=== PATIENT | male | born 1950 | race Caucasian/White ===

== ENCOUNTER → 2017-09-26 | Outpatient (CLI) | payer MEDICARE | END | disposition home or self-care (01) | LOC: CPPFTMAIN 13:18 | PROVIDERS: ATTEND Internal Medicine Critical Care Medicine | DX: J44.9 Chronic obstructive pulmonary disease, unspecified (principal) | CPT/HCPCS: 94060; 94726; 94729 ==

== ENCOUNTER 2021-08-20 10:34 | Emergency (ER) | payer MEDICARE ==
[2021-08-20 12:01] LABS: Appearance,Urine Turbid (Clear); Bacteria,Urine Many /hpf; Bilirubin,Urine Negative (Negative); Blood,Urine Large (Negative); Color,Urine Yellow; Glucose,Urine (UA) 4+ (Negative); Leukocyte Esterase,Urine Large (Negative); Mucus,Urine Moderate /hpf; Nitrite,Urine Positive (Negative); PH, Urine 5.5 (5.0-8.0); Protein,Urine 2+ (Negative); RBC,Urine >182 /hpf (0-5); Squamous Epithelial Cell,Urine 1 /hpf (0-4); Urobilinogen,Urine <2.0 mg/dL (<2.0); WBC,Urine >182 /hpf (0-5)
[2021-08-20 12:06] LABS: Ketones,Urine 2+ (Negative)
[2021-08-20] MEDS ORDERED: SODIUM CHLORIDE 0.9% 500 ML 500 ML IV ONE (12:10)
[2021-08-20] MEDS ORDERED: SODIUM CHLORIDE 0.9% 1,000 ML IV ONE (12:10)
[2021-08-20] MEDS ORDERED: ACETAMINOPHEN TAB 325 MG TAB PO STA (12:10)
--- NOTE | 2021-08-20 12:18 | ED ---
Male Urogenital HPI - General Chief complaint: Urogenital Stated complaint: UTI Time Seen by Provider: 08/20/21 11:54 Source: patient, RN notes reviewed Mode of arrival: ambulatory Limitations: no limitations - History of Present Illness Initial comments: This a 71-year-old male presents emergency Department chief complaint of generalized weakness, not feeling well, urinary frequency dysuria. Patient states it pressure yesterday got over to his work today states that he felt so weak that he just went home and slept. Patient states he noticed urinary frequency and dysuria states he had one prior urinary tract infection he does admit that he has some dribbling issues and he wears a pad and noticed some blood a few days ago. Patient has bilateral flank pain. Patient is found to be febrile emergency department. Patient has slight nausea no vomiting no diarrhea constipation no chest pain no shortness of breath no cough or URI symptoms - Related Data Previous Rx's Medication Instructions Recorded Sulfamethox-Tmp 800-160Mg [Bactrim 1 each PO Q12HR #20 tab 08/20/21 Ds] Allergies Allergy/AdvReac Type Severity Reaction Status Date / Time No Known Allergies Allergy Verified 08/20/21 11:20 Review of Systems ROS Statement: Those systems with pertinent positive or pertinent negative responses have been documented in the HPI. ROS Other: All systems not noted in ROS Statement are negative. Past Medical History Past Medical History: CVA/TIA, Diabetes Mellitus, Hyperlipidemia, Hypertension History of Any Multi-Drug Resistant Organisms: None Reported Past Surgical History: Cholecystectomy, Orthopedic Surgery Additional Past Surgical History / Comment(s): carpal tunnel Past Psychological History: No Psychological Hx Reported Smoking Status: Former smoker Past Alcohol Use History: None Reported Past Drug Use History: None Reported General Exam Limitations: no limitations General appearance: alert, in no apparent distress Head exam: Present: atraumatic, normocephalic, normal inspection Eye exam: Present: normal appearance, PERRL, EOMI. Absent: scleral icterus, conjunctival injection, periorbital swelling ENT exam: Present: normal exam, normal oropharynx, mucous membranes moist Neck exam: Present: normal inspection, full ROM. Absent: tenderness, meningismus, lymphadenopathy Respiratory exam: Present: normal lung sounds bilaterally. Absent: respiratory distress, wheezes, rales, rhonchi, stridor Cardiovascular Exam: Present: regular rate, normal rhythm, normal heart sounds. Absent: systolic murmur, diastolic murmur, rubs, gallop, clicks GI/Abdominal exam: Present: soft, normal bowel sounds. Absent: distended, t enderness, guarding, rebound, rigid Back exam: Absent: CVA tenderness (R), CVA tenderness (L) Neurological exam: Present: alert, oriented X3 Course Vital Signs 08/20/21 11:16 Temperature 100.1 F H Pulse Rate 85 Respiratory 18 Rate Blood Pressure 138/84 O2 Sat by Pulse 97 Oximetry Medical Decision Making - Medical Decision Making Patient presented for generalized weakness, urinary symptoms. Patient found to have urinary tract infection. Patient did have hematuria but no evidence of kidney stone. Patient has no retention. Patient feels greatly improved at this time we discharged on oral antibiotics after Rocephin. - Lab Data Result diagrams: 08/20/21 13:13 08/20/21 13:13 Lab Results 08/20/21 08/20/21 08/20/21 Range/Units 11:26 13:13 13:13 WBC 16.1 H (3.8-10.6) k/uL RBC 5.21 (4.30-5.90) m/uL Hgb 16.0 (13.0-17.5) gm/dL Hct 47.1 (39.0-53.0) % MCV 90.3 (80.0-100.0) fL MCH 30.7 (25.0-35.0) pg MCHC 34.0 (31.0-37.0) g/dL RDW 12.5 (11.5-15.5) % Plt Count 173 (150-450) k/uL MPV 7.0 Neutrophils % 87 % Lymphocytes % 7 % Monocytes % 5 % Eosinophils % 0 % Basophils % 0 % Neutrophils # 14.0 H (1.3-7.7) k/uL Lymphocytes # 1.1 (1.0-4.8) k/uL Monocytes # 0.8 (0-1.0) k/uL Eosinophils # 0.1 (0-0.7) k/uL Basophils # 0.0 (0-0.2) k/uL Sodium 135 L (137-145) mmol/L Potassium 3.9 (3.5-5.1) mmol/L Chloride 102 (98-107) mmol/L Carbon Dioxide 24 (22-30) mmol/L Anion Gap 9 mmol/L BUN 11 (9-20) mg/dL Creatinine 0.61 L (0.66-1.25) mg/dL Est GFR (CKD-EPI)AfAm >90 (>60 ml/min/1.73 sqM) Est GFR (CKD-EPI)NonAf >90 (>60 ml/min/1.73 sqM) Glucose 112 H (74-99) mg/dL Plasma Lactic Acid Forrest (0.7-2.0) mmol/L Calcium 9.5 (8.4-10.2) mg/dL Total Bilirubin 1.8 H (0.2-1.3) mg/dL AST 36 (17-59) U/L ALT 28 (4-49) U/L Alkaline Phosphatase 61 (38-126) U/L Total Protein 7.1 (6.3-8.2) g/dL Albumin 4.3 (3.5-5.0) g/dL Urine Color Yellow Urine Appearance Turbid (Clear) Urine pH 5.5 (5.0-8.0) Ur Specific Rockwell 1.020 (1.001-1.035) Urine Protein 2+ H (Negative) Urine Glucose (UA) 4+ H (Negative) Urine Ketones 2+ H (Negative) Urine Blood Large H (Negative) Urine Nitrite Positive (Negative) Urine Bilirubin Negative (Negative) Urine Urobilinogen <2.0 (<2.0) mg/dL Ur Leukocyte Esterase Large H (Negative) Urine RBC >182 H (0-5) /hpf Urine WBC >182 H (0-5) /hpf Urine WBC Clumps Many H (None) /hpf Ur Squamous Epith Cells 1 (0-4) /hpf Urine Bacteria Many H (None) /hpf Urine Mucus Moderate H (None) /hpf 08/20/21 Range/Units 13:13 WBC (3.8-10.6) k/uL RBC (4.30-5.90) m/uL Hgb (13.0-17.5) gm/dL Hct (39.0-53.0) % MCV (80.0-100.0) fL MCH (25.0-35.0) pg MCHC (31.0-37.0) g/dL RDW (11.5-15.5) % Plt Count (150-450) k/uL MPV Neutrophils % % Lymphocytes % % Monocytes % % Eosinophils % % Basophils % % Neutrophils # (1.3-7.7) k/uL Lymphocytes # (1.0-4.8) k/uL Monocytes # (0-1.0) k/uL Eosinophils # (0-0.7) k/uL Basophils # (0-0.2) k/uL Sodium (137-145) mmol/L Potassium (3.5-5.1) mmol/L Chloride (98-107) mmol/L Carbon Dioxide (22-30) mmol/L Anion Gap mmol/L BUN (9-20) mg/dL Creatinine (0.66-1.25) mg/dL Est GFR (CKD-EPI)AfAm (>60 ml/min/1.73 sqM) Est GFR (CKD-EPI)NonAf (>60 ml/min/1.73 sqM) Glucose (74-99) mg/dL Plasma Lactic Acid Forrest 1.0 (0.7-2.0) mmol/L Calcium (8.4-10.2) mg/dL Total Bilirubin (0.2-1.3) mg/dL AST (17-59) U/L ALT (4-49) U/L Alkaline Phosphatase (38-126) U/L Total Protein (6.3-8.2) g/dL Albumin (3.5-5.0) g/dL Urine Color Urine Appearance (Clear) Urine pH (5.0-8.0) Ur Specific Rockwell (1.001-1.035) Urine Protein (Negative) Urine Glucose (UA) (Negative) Urine Ketones (Negative) Urine Blood (Negative) Urine Nitrite (Negative) Urine Bilirubin (Negative) Urine Urobilinogen (<2.0) mg/dL Ur Leukocyte Esterase (Negative) Urine RBC (0-5) /hpf Urine WBC (0-5) /hpf Urine WBC Clumps (None) /hpf Ur Squamous Epith Cells (0-4) /hpf Urine Bacteria (None) /hpf Urine Mucus (None) /hpf Disposition Clinical Impression: UTI (urinary tract infection) Disposition: HOME SELF-CARE Condition: Stable Instructions (If sedation given, give patient instructions): Urinary Tract Infection in Men (ED) Additional Instructions: Please return to the Emergency Department if symptoms worsen or any other concerns. Please follow-up with your primary care physician discuss your enlarged prostate Prescriptions: Sulfamethox-Tmp 800-160Mg [Bactrim Ds] 1 each PO Q12HR #20 tab Is patient prescribed a controlled substance at d/c from ED?: No Referrals: Yanique Lazcano NPC [Primary Care Provider] - 1-2 days Time of Disposition: 14:23
[2021-08-20 13:34] LABS: Basophils % (A) 0 %; Eosinophils # (A) 0.1 k/uL (0-0.7); Eosinophils % (A) 0 %; HCT 47.1 % (39.0-53.0); Lymphocytes # (A) 1.1 k/uL (1.0-4.8); Lymphocytes % (A) 7 %; MCH 30.7 pg (25.0-35.0); MCV 90.3 fL (80.0-100.0); Monocytes # (A) 0.8 k/uL (0-1.0); Monocytes % (A) 5 %; Neutrophils % (A) 87 %; Platelet Count 173 k/uL (150-450); RBC 5.21 m/uL (4.30-5.90); RDW 12.5 % (11.5-15.5); WBC 16.1 k/uL (3.8-10.6)
[2021-08-20 13:47] LABS: ALT 28 U/L (4-49); AST 36 U/L (17-59); African American GFR (CKD) >90 (>60 ml/min/1.73 sqM); Albumin 4.3 g/dL (3.5-5.0); Alkaline Phosphatase 61 U/L (38-126); Anion Gap 9 mmol/L; Blood Urea Nitrogen 11 mg/dL (9-20); Calcium 9.5 mg/dL (8.4-10.2); Carbon Dioxide 24 mmol/L (22-30); Chloride 102 mmol/L (98-107); Glucose 112 mg/dL (74-99); Non-African American GFR(CKD) >90 (>60 ml/min/1.73 sqM); Potassium 3.9 mmol/L (3.5-5.1); Sodium 135 mmol/L (137-145); Total Bilirubin 1.8 mg/dL (0.2-1.3); Total Protein 7.1 g/dL (6.3-8.2)
--- NOTE | 2021-08-20 14:11 | CT ---
EXAMINATION TYPE: CT abdomen pelvis wo con DATE OF EXAM: 08/20/2021 COMPARISON: None HISTORY: Burning with urniation for [address] DLP: 1030.4 mGycm Automated exposure control for dose reduction was used. Images obtained from the diaphragm to the floor the pelvis with no contrast. Lung bases are clear. There is no pleural effusion. Heart size is normal. There is no pericardial eff usion. Liver is intact. Bile ducts are not dilated. There are clips from cholecystectomy. There are small ca lcified splenic granulomata. There is no pancreatic mass. The stomach is intact. There is no adrenal mass. Kidneys have normal size and contour. There is no hydronephrosis. There is no retroperitoneal adenopathy. Ureters are not dilated. Appendix appears normal. Bladder distends smoothly. Prostate is enlarged and measures 6.2 cm with multiple calcifications. The re is no inguinal hernia. There is no free fluid in the pelvis. There are sigmoid diverticula without sign of diverticulitis. The lumbar vertebra have normal alignment. There is disc space narrowing from L2 to L5 with mild spur ring. There is no lumbar compression fracture. Posterior elements are intact. Bony pelvis is intact. Hip joints are intact. IMPRESSION: No evidence of renal stone or obstruction. Enlarged prostate. Mild sigmoid diverticulosis.
[2021-08-20] MEDS ORDERED: cefTRIAXone IN SWFI 1,000 MG/10 ML SYRINGE IVP STA (14:22)
[2021-08-20 14:25] VITALS: RESP 20
[2021-08-20 14:44] VITALS: BP 113/79; PULSE 75; TEMP 98
== END 2021-08-20 14:44 | disposition home or self-care (01) ==
LOC: EC 10:34
DX: N39.0 Urinary tract infection, site not specified (principal); B96.89 Other specified bacterial agents as the cause of diseases classified elsewhere; R53.1 Weakness; K57.30 Diverticulosis of large intestine without perforation or abscess without bleeding; E11.9 Type 2 diabetes mellitus without complications; I10 Essential (primary) hypertension; Z87.891 Personal history of nicotine dependence
CPT/HCPCS: 36415; 80053; 83605; 85025; 81001; 87086; 74176; 99285; 96374; 96361; J0696; 87077; 87186

== ENCOUNTER → 2021-09-05 | Outpatient (CLI) | payer MEDICARE ==
[2021-09-05 14:56] LABS: Basophils # (A) 0.03 X 10*3/uL (0.00-0.10); Basophils % (A) 0.5 %; Eosinophils # (A) 0 X 10*3/uL (0.04-0.35); Eosinophils % (A) 0 %; HGB 15.5 g/dL (13.0-17.0); Lymphocytes # (A) 1.89 X 10*3/uL (0.90-5.00); Lymphocytes % (A) 29.2 %; MCH 29.5 pg (27.0-32.0); MCHC 32.3 g/dL (32.0-37.0); MCV 91.3 fL (80.0-97.0); Mean Platelet Volume 9.8 fL (9.5-12.2); Monocytes # (A) 0.73 X 10*3/uL (0.20-1.00); Monocytes % (A) 11.3 %; Neutrophils % (A) 58.5 %; Platelet Count 289 X 10*3/uL (140-440); RBC 5.26 X 10*6/uL (4.40-5.60); RDW 12.4 % (11.5-14.5); WBC 6.48 X 10*3/uL (4.50-10.00)
[2021-09-05 16:16] LABS: African American GFR (CKD) 109.3 (60.0-200.0); Albumin 4.7 g/dL (3.8-4.9); Albumin/Globulin Ratio 2.04 (1.60-3.17); Anion Gap 13.2 mmol/L (4.00-12.00); BUN/Creat Ratio 28.86 Ratio (12.00-20.00); Blood Urea Nitrogen 20.2 mg/dL (9.0-27.0); Calcium 9.7 mg/dL (8.7-10.3); Carbon Dioxide 23.8 mmol/L (21.6-31.8); Chol/HDL Ratio 2.33 Ratio; Globulin 2.3 g/dL (1.6-3.3); HDL Cholesterol 49.3 mg/dL (40.00-60.00); LDL Cholesterol,Calculated 44.5 mg/dL (0.0-131.0); Non-African American GFR(CKD) 94.3 (60.0-200.0); PSA Annual Screen 1.6 ng/mL (0.000-4.000); Potassium 4.9 mmol/L (3.5-5.5); Total Bilirubin 0.5 mg/dL (0.30-1.20); VLDL Calculation 21.2 mg/dL (5.00-40.00)
[2021-09-05 20:37] LABS: Urine Creatinine 83.1 mg/dL (39.0-259.0)
== END | disposition home or self-care (01) ==
LOC: LABWHC1 09:23
PROVIDERS: ATTEND Nurse Practitioner Adult Health
DX: E78.5 Hyperlipidemia, unspecified (principal); E55.9 Vitamin D deficiency, unspecified; E11.9 Type 2 diabetes mellitus without complications
CPT/HCPCS: 80061; 80053; 85025; 82306; 82043; 82570; 83036; 36415; G0103